=== PATIENT | male | born 1980 | race Caucasian/White ===

== ENCOUNTER 2022-01-28 03:52 | Emergency (ER) | payer BC ==
[2022-01-28] MEDS ORDERED: Sodium Chloride 0.9% 10 ML Syringe FLUSH PRN (04:04)
[2022-01-28] MEDS ORDERED: Alum Hydrox/Mag Hydrox/Simeth 30 ML, Lidocaine 2% 15 ML PO STA ×2 (04:33)
[2022-01-28] MEDS ORDERED: Famotidine 20 MG Tab PO STA (05:13)
== END 2022-01-28 05:27 | disposition home or self-care (01) ==
LOC: JD.ED 03:52
DX: K21.9 Gastro-esophageal reflux disease without esophagitis (principal); E78.00 Pure hypercholesterolemia, unspecified; I10 Essential (primary) hypertension; E66.9 Obesity, unspecified; Z68.31 Body mass index [BMI] 31.0-31.9, adult; Z86.16 Personal history of COVID-19; Z88.0 Allergy status to penicillin; Z87.891 Personal history of nicotine dependence; Z79.899 Other long term (current) drug therapy
CPT/HCPCS: 36415; 71045; 80053; 83735; 84484; 85025; 85379; 85610; 93005; 99285; A9270; J3490

== ENCOUNTER 2023-03-12 09:40 | Day surgery (SDC) | payer BC ==
[~2023-03-12 09:40] MED LIST: Lactated Ringers 1,000 ML IV SCH; Sodium Chloride 0.9% 10 ML Syringe FLUSH PRN; Sodium Chloride 0.9% 10 ML Syringe FLUSH SCH
[2023-03-12] MEDS ORDERED: Clindamycin Phosphate in D5W 900 MG in Premix Bag 1 BAG IV SCH ×2 (09:45)
[2023-03-12] MEDS ORDERED: Bupivacaine 0.5%/EPINEPHrine 1:200,000 50 ML MDV ONE (10:34)
[2023-03-12] MEDS ORDERED: Midazolam 1 MG/ML 2 ML SDV ONE (11:29)
[2023-03-12] MEDS ORDERED: fentaNYL 100 MCG/2 ML SDV ONE (11:29)
[2023-03-12] MEDS ORDERED: Ketamine 500 mg/10 ML MDV ONE (11:29)
[2023-03-12] MEDS ORDERED: Propofol 200 MG/20 ML SDV ONE ×2 (11:29→12:18)
== END 2023-03-12 13:57 | disposition home or self-care (01) ==
LOC: JD.SDS 09:40
PROVIDERS: ATTEND Surgery
DX: K60.0 Acute anal fissure (principal); K60.1 Chronic anal fissure; K64.0 First degree hemorrhoids; K64.4 Residual hemorrhoidal skin tags; F41.9 Anxiety disorder, unspecified; I10 Essential (primary) hypertension; E78.00 Pure hypercholesterolemia, unspecified; Z88.0 Allergy status to penicillin
CPT/HCPCS: 46924; J2250; J2704; J3010; J3490; J7120; 00902; 00920

== ENCOUNTER 2024-10-29 06:36 | Day surgery (SDC) | payer BC ==
[~2024-10-29 06:36] MED LIST changes: -Lactated Ringers 1,000 ML IV SCH
[2024-10-29] MEDS: Lactated Ringers 1,000 ML IV SCH (06:50)
[2024-10-29] MEDS ORDERED: Lidocaine 1% 4 ML ONE (07:05)
[2024-10-29] MEDS ORDERED: Propofol 200 MG/20 ML SDV ONE (07:05)
== END 2024-10-29 08:38 | disposition home or self-care (01) ==
LOC: JD.SDS 06:36
PROVIDERS: ATTEND Surgery
DX: Z12.11 Encounter for screening for malignant neoplasm of colon (principal); I10 Essential (primary) hypertension; E78.00 Pure hypercholesterolemia, unspecified; F41.9 Anxiety disorder, unspecified; Z79.899 Other long term (current) drug therapy
CPT/HCPCS: 45378; J2704; J7120